=== PATIENT | female | born 1990 | race Caucasian/White ===

== ENCOUNTER → 2024-06-29 10:03 | Outpatient (REF) | payer OTHER, SELFPAY | LOC: PNTC 10:03 | PROVIDERS: ATTENDING PHYSICIAN Obstetrics & Gynecology | DX: O09.529 Supervision of elderly multigravida, unspecified trimester (principal) | CPT/HCPCS: 76805 ==

== ENCOUNTER → 2024-08-10 09:47 | Outpatient (REF) | payer BC, SELFPAY | LOC: PNTC 09:47 | PROVIDERS: ATTENDING PHYSICIAN Obstetrics & Gynecology | DX: O09.519 Supervision of elderly primigravida, unspecified trimester (principal) | CPT/HCPCS: 76811 ==

== ENCOUNTER → 2024-09-30 09:45 | Outpatient (REF) | payer BC, SELFPAY | LOC: PNTC 09:45 | PROVIDERS: ATTENDING PHYSICIAN Obstetrics & Gynecology | DX: O99.210 Obesity complicating pregnancy, unspecified trimester (principal) | CPT/HCPCS: 76816 ==

== ENCOUNTER → 2024-11-09 09:51 | Outpatient (REF) | payer BC, SELFPAY | LOC: PNTC 09:51 | PROVIDERS: ATTENDING PHYSICIAN Obstetrics & Gynecology | DX: O09.529 Supervision of elderly multigravida, unspecified trimester (principal) | CPT/HCPCS: 76816 ==

== ENCOUNTER → 2024-12-13 08:25 | Outpatient (REF) | payer BC, SELFPAY | LOC: PNTC 08:25 | PROVIDERS: ATTENDING PHYSICIAN Obstetrics & Gynecology | DX: O36.63X1 Maternal care for excessive fetal growth, third trimester, fetus 1 (principal) | CPT/HCPCS: 76816 ==

== ENCOUNTER 2024-12-21 19:45 | Inpatient (IN) | payer BC, SELFPAY ==
[2024-12-21 20:01] VITALS: BP 120/70; BMI 32.8
[2024-12-21 20:37] LABS: % Basophils 0.1 % (0-2); % Eosinophils 0.3 % (0-6); % Immature Granulocytes 0.3 % (0-0.5); % Lymphocytes 25.3 % (20.5-51.1); % Monocytes 7.4 % (1.7-9.3); % Neutrophils 66.6 % (42.2-75.2); Absolute Monocytes 0.6 10^3/uL (0.1-0.6); Absolute Neutrophils 5.2 10^3/uL (1.4-6.5); Hematocrit 30.2 % (37.0-47.0); Hemoglobin 10.5 g/dL (12.0-16.0); Mean Corp Hgb Conc. 34.8 g/dL (33.0-37.0); Mean Corpuscular Hgb 30.2 pg (27.0-31.0); Mean Corpuscular Volume 86.8 fL (81.0-99.0); Mean Platelet Volume 11.9 fL (7.4-10.4); Nucleated Red Blood Cells % 0 %; Platelet Count 200 10^3/uL (130-400); Red Blood Cell Count 3.48 10^6/uL (4.20-5.40); Red Cell Dist. Width 13.8 % (11.5-14.5); White Blood Cell Count 7.8 10^3/uL (4.8-10.8)
[2024-12-21] MEDS: CYTOTEC 25 MICROGRAM VAG (20:44)
[2024-12-22] MEDS: CYTOTEC 50 MICROGRAM PO (01:00)
[2024-12-22] MEDS: CYTOTEC PO ×2 (05:15→11:42)
[2024-12-22] MEDS: LR 1000 IV (08:55)
[2024-12-22] MEDS: PITOCIN 30 UNITS/NSS 500 ML IV (08:55)
[2024-12-22] MEDS: PRENATAL PLUS 1 TABLET PO (08:55)
--- NOTE | 2024-12-22 16:37 | DOWNTIME ---
There was a [employer] Inspector Downtime on 12/22/2024 from 1230 to 12/22/2024 at 1550. Downtime documentation of patient's care, including medication administrations, has been reconciled in the electronic record per guidelines. Refer to the
patient's paper chart under the miscellaneous tab to see printed paper medication records and downtime forms.
[2024-12-22] MEDS: SUBLIMAZE 100 MCG EPIDURAL (16:54)
[2024-12-22] MEDS: FENTANYL/BUPIVACAINE 100 EPIDURAL ×2 (16:58→17:03)
[2024-12-23 04:19] LABS: Hematocrit 31.4 % (37.0-47.0); Hemoglobin 10.5 g/dL (12.0-16.0)
[2024-12-23] MEDS: MOTRIN 600 MG PO ×2 (08:06→16:26)
[2024-12-23] MEDS: PRENATAL PLUS 1 TABLET PO (08:06)
[2024-12-24 12:15] LABS: Syphilis/T. pallidum Ab Reflex Negative (Negative)
== END 2024-12-23 18:32 | disposition home or self-care (01) | DRG 807 ==
LOC: LDRP 19:45
PROVIDERS: Obstetrics & Gynecology; ADMITTING PHYSICIAN Obstetrics & Gynecology
PROC: 3E0P7VZ Introduction of Hormone into Female Reproductive, Via Natural or Artificial Opening (ICD-10-PCS; 2024-12-21)
PROC: 10907ZC Drainage of Amniotic Fluid, Therapeutic from Products of Conception, Via Natural or Artificial Opening (ICD-10-PCS; 2024-12-22)
PROC: 10E0XZZ Delivery of Products of Conception, External Approach (ICD-10-PCS; 2024-12-22)
DX: O36.63X0 Maternal care for excessive fetal growth, third trimester, not applicable or unspecified (principal); Z37.0 Single live birth; Z3A.39 39 weeks gestation of pregnancy
CPT/HCPCS: 85014; 85018; 85025; 86780; 86850; 86900; 86901